=== PATIENT | male | born 1990 | race African-American/Black ===

== ENCOUNTER 2023-10-25 14:16 | Emergency (ER) | payer SELFPAY ==
[~2023-10-25] VITALS: Ht 180.3 cm; Wt 88.6 kg
[2023-10-25 14:25] VITALS: TEMP 98.3
[2023-10-25 14:47] VITALS: BP 133/87
[2023-10-25] MEDS ORDERED: IPRATROPIUM BROMIDE 0.5 MG/2.5 ML NEB SOLUTION NEB ONE (15:00)
[2023-10-25] MEDS ORDERED: PredniSONE 20 MG TABLET PO ONE (15:00)
[2023-10-25] MEDS ORDERED: ALBUTEROL SULFATE 2.5 MG/0.5 ML NEB SOLUTION NEB ONE (15:00)
[2023-10-25] MEDS ORDERED: ALBUTEROL SULFATE HFA 90 MCG/PUFF 8 GM INHALER IH ONE (15:00)
[2023-10-25 15:04] VITALS: PULSE 63; RESP 16; O2SAT 96
[2023-10-25 15:19] VITALS: PULSE 57; RESP 16; O2SAT 100
[2023-10-25 15:20] VITALS: PULSE 61; RESP 18; O2SAT 100
[2023-10-25] MEDS ORDERED: PRED-554 PO (15:38)
== END 2023-10-25 15:45 | disposition home or self-care (01) ==
LOC: EMS 14:27
DX: J45.909 Unspecified asthma, uncomplicated (principal)
CPT/HCPCS: 99283; 94640; J7512; J3535

== ENCOUNTER 2023-12-20 19:37 | Emergency (ER) | payer MEDICAID ==
[~2023-12-20] VITALS: Ht 180.3 cm; Wt 94.5 kg
[~2023-12-20 19:37] MED LIST: PRED-554 PO
[2023-12-20 20:09] VITALS: BP 141/87; PULSE 59; RESP 18; TEMP 97.6
[2023-12-20] MEDS ORDERED: ALBU18HF12 IH (21:16)
[2023-12-20] MEDS: ALBUTEROL SULFATE 2.5 MG/0.5 ML NEB SOLUTION NEB ONE (21:35)
== END 2023-12-20 22:16 | disposition home or self-care (01) ==
LOC: EMS 19:37
DX: J45.909 Unspecified asthma, uncomplicated (principal); Z76.0 Encounter for issue of repeat prescription
CPT/HCPCS: 94640; 99283

== ENCOUNTER 2024-01-26 08:29 | Emergency (ER) | payer MEDICAID ==
[~2024-01-26] VITALS: Ht 180.3 cm; Wt 95.0 kg
[~2024-01-26 08:29] MED LIST changes: +ALBU18HF12 IH
[2024-01-26 08:32] VITALS: TEMP 98.1
[2024-01-26] MEDS ORDERED: ALBU18HF12 IH (08:52)
[2024-01-26] MEDS: ALBUTEROL SULFATE HFA 90 MCG/PUFF 8 GM INHALER IH ONE (09:01)
[2024-01-26 09:07] VITALS: BP 135/82; PULSE 60; RESP 16
== END 2024-01-26 09:12 | disposition home or self-care (01) ==
LOC: EMS 08:29
DX: J45.909 Unspecified asthma, uncomplicated (principal); Z76.0 Encounter for issue of repeat prescription
CPT/HCPCS: 99283; 94640; J3535

== ENCOUNTER 2024-03-20 16:42 | Emergency (ER) | payer SELFPAY ==
[~2024-03-20] VITALS: Ht 180.3 cm; Wt 96.8 kg
[~2024-03-20 16:42] MED LIST changes: -PRED-554 PO
[2024-03-20 16:46] VITALS: BP 130/84; PULSE 58; RESP 16; TEMP 98
== END 2024-03-20 17:56 | disposition home or self-care (01) ==
LOC: EMS 16:43
DX: J45.21 Mild intermittent asthma with (acute) exacerbation (principal); Z76.0 Encounter for issue of repeat prescription
CPT/HCPCS: 99281; Z7502

== ENCOUNTER 2024-04-29 23:05 | Emergency (ER) | payer SELFPAY ==
[~2024-04-29] VITALS: Ht 182.9 cm; Wt 95.5 kg
[2024-04-29 23:11] VITALS: TEMP 97.7
[2024-04-29 23:54] VITALS: BP 127/71
[2024-04-30] MEDS ORDERED: ALBU18HF12 IH (00:07)
[2024-04-30] MEDS ORDERED: METH4TAB95 PO (00:07)
[2024-04-30] MEDS: DEXAMETHASONE SOD PHOS 4 MG/ML 5 ML VIAL IM ONE (00:16)
[2024-04-30] MEDS: ALBUTEROL SULFATE 2.5 MG/0.5 ML NEB SOLUTION NEB ONE (00:26)
[2024-04-30] MEDS: IPRATROPIUM BROMIDE 0.5 MG/2.5 ML NEB SOLUTION NEB ONE (00:26)
[2024-04-30 00:30] VITALS: PULSE 100; RESP 18; O2SAT 97
[2024-04-30 00:40] VITALS: PULSE 106; RESP 18; O2SAT 100
== END 2024-04-30 00:49 | disposition home or self-care (01) ==
LOC: EMS 23:05
DX: J45.901 Unspecified asthma with (acute) exacerbation (principal)
CPT/HCPCS: 99283; 94640; 96372; J1100

== ENCOUNTER 2024-06-09 22:57 | Emergency (ER) | payer SELFPAY ==
[~2024-06-09] VITALS: Ht 182.9 cm; Wt 92.7 kg
[~2024-06-09 22:57] MED LIST changes: +METH4TAB95 PO
[2024-06-09 23:19] VITALS: BP 138/87; TEMP 98.3
[2024-06-09] MEDS: PredniSONE 20 MG TABLET PO ONE (23:27)
[2024-06-09] MEDS: IPRATROPIUM BROMIDE 0.5 MG/2.5 ML NEB SOLUTION NEB ONE (23:27)
[2024-06-09] MEDS: ALBUTEROL SULFATE HFA 90 MCG/PUFF 8 GM INHALER IH ONE (23:28)
[2024-06-09] MEDS: ALBUTEROL SULFATE 2.5 MG/0.5 ML NEB SOLUTION NEB ONE (23:28)
[2024-06-09 23:30] VITALS: PULSE 71; RESP 17; O2SAT 98
[2024-06-09 23:45] VITALS: PULSE 73; RESP 19; O2SAT 100
[2024-06-09 23:50] VITALS: PULSE 69; RESP 18; O2SAT 99
[2024-06-10] MEDS ORDERED: PRED-554 PO (00:13)
== END 2024-06-10 02:44 | disposition home or self-care (01) ==
LOC: EMS 22:57
DX: J45.901 Unspecified asthma with (acute) exacerbation (principal)
CPT/HCPCS: 99283; 94640; 94060; J7512; J3535

== ENCOUNTER 2024-06-18 10:12 | Emergency (ER) | payer SELFPAY ==
[~2024-06-18] VITALS: Ht 180.3 cm; Wt 95.5 kg
[~2024-06-18 10:12] MED LIST changes: +PRED-554 PO
[2024-06-18 10:14] VITALS: BP 126/74; PULSE 60; RESP 18; TEMP 98; O2SAT 99
[2024-06-18] MEDS ORDERED: ALBU18HF12 IH (10:29)
== END 2024-06-18 10:33 | disposition home or self-care (01) ==
LOC: EMS 10:12
DX: J45.901 Unspecified asthma with (acute) exacerbation (principal); Z76.0 Encounter for issue of repeat prescription
CPT/HCPCS: 99281; Z7502

== ENCOUNTER 2024-08-05 02:51 | Emergency (ER) | payer SELFPAY ==
[~2024-08-05] VITALS: Ht 180.3 cm; Wt 97.3 kg
[~2024-08-05 02:51] MED LIST changes: -METH4TAB95 PO; -PRED-554 PO
[2024-08-05 02:52] VITALS: BP 143/102; TEMP 97.8
[2024-08-05] MEDS ORDERED: ALBU18HF12 IH (03:17)
[2024-08-05 03:23] VITALS: PULSE 65; RESP 20; O2SAT 98
[2024-08-05] MEDS: IPRATROPIUM BROMIDE 0.5 MG/2.5 ML NEB SOLUTION NEB ONE (03:23)
[2024-08-05] MEDS: ALBUTEROL SULFATE 2.5 MG/0.5 ML NEB SOLUTION NEB ONE (03:23)
[2024-08-05] MEDS: DEXAMETHASONE SOD PHOS 4 MG/ML 5 ML VIAL IM ONE (03:28)
[2024-08-05] MEDS: ALBUTEROL SULFATE HFA 90 MCG/PUFF 8 GM INHALER IH ONE (03:34)
[2024-08-05 03:38] VITALS: PULSE 64; RESP 20; O2SAT 99
== END 2024-08-05 03:45 | disposition home or self-care (01) ==
LOC: EMS 02:51
DX: J45.901 Unspecified asthma with (acute) exacerbation (principal)
CPT/HCPCS: 99283; 94640; 96372; J1100; J3535

== ENCOUNTER 2024-11-03 22:46 | Emergency (ER) | payer SELFPAY ==
[~2024-11-03] VITALS: Ht 182.9 cm; Wt 95.0 kg
[2024-11-03 23:07] VITALS: BP 129/79; PULSE 63; RESP 18; TEMP 97.7; O2SAT 100
[2024-11-03] MEDS: IPRATROPIUM BROMIDE 0.5 MG/2.5 ML NEB SOLUTION NEB ONE (23:43)
[2024-11-03] MEDS: ALBUTEROL SULFATE 2.5 MG/0.5 ML NEB SOLUTION NEB ONE (23:43)
[2024-11-03] MEDS ORDERED: PredniSONE 20 MG TABLET PO ONE (23:45)
[2024-11-03] MEDS: ALBUTEROL SULFATE HFA 90 MCG/PUFF 8 GM INHALER IH ONE (23:46)
[2024-11-04] MEDS ORDERED: PRED-554 PO (00:03)
== END 2024-11-04 00:05 | disposition left against medical advice (07) ==
LOC: EMS 22:46
DX: J45.901 Unspecified asthma with (acute) exacerbation (principal)
CPT/HCPCS: 99283; 94640; J3535; 94060

== ENCOUNTER 2024-11-21 12:41 | Emergency (ER) | payer OTHER ==
[~2024-11-21] VITALS: Ht 180.3 cm; Wt 94.1 kg
[~2024-11-21 12:41] MED LIST changes: +PRED-554 PO
[2024-11-21 12:44] VITALS: TEMP 98.5
[2024-11-21] MEDS ORDERED: BECL10.62 IH ×2 (12:50→14:47)
[2024-11-21] MEDS: ALBUTEROL SULFATE 2.5 MG/0.5 ML 5 ML NEB SOLUTION NEB ONE (14:03)
[2024-11-21] MEDS: IPRATROPIUM BROMIDE 0.5 MG/2.5 ML NEB SOLUTION NEB ONE (14:03)
[2024-11-21 14:08] VITALS: PULSE 75; RESP 20; O2SAT 91
[2024-11-21] MEDS: ALBUTEROL SULFATE HFA 90 MCG/PUFF 8 GM INHALER IH ONE (14:27)
[2024-11-21] MEDS: PredniSONE 20 MG TABLET PO ONE (14:27)
[2024-11-21] MEDS ORDERED: ALBU18HF12 IH (14:47)
[2024-11-21 15:16] VITALS: BP 142/94; PULSE 90; RESP 18; O2SAT 100
== END 2024-11-21 15:18 | disposition home or self-care (01) ==
LOC: EMS 12:41
DX: J45.901 Unspecified asthma with (acute) exacerbation (principal); Z79.51 Long term (current) use of inhaled steroids
CPT/HCPCS: 99285; 71045; 94644; J7512; J3535

== ENCOUNTER 2025-01-14 21:57 | Emergency (ER) | payer SELFPAY ==
[~2025-01-14] VITALS: Ht 180.3 cm; Wt 94.1 kg
[~2025-01-14 21:57] MED LIST changes: +BECL10.62 IH; -PRED-554 PO
[2025-01-15 00:39] VITALS: TEMP 98.4
[2025-01-15 00:49] VITALS: PULSE 66; RESP 18; RESP 20; O2SAT 93
[2025-01-15] MEDS: IPRATROPIUM BROMIDE 0.5 MG/2.5 ML NEB SOLUTION NEB ONE (00:49)
[2025-01-15] MEDS: ALBUTEROL SULFATE 2.5 MG/0.5 ML NEB SOLUTION NEB ONE (00:49)
[2025-01-15] MEDS: PredniSONE 20 MG TABLET PO ONE (00:55)
[2025-01-15 01:04] VITALS: PULSE 73; RESP 18; O2SAT 100
[2025-01-15] MEDS ORDERED: ALBU2.5V39 NEB (02:08)
[2025-01-15] MEDS ORDERED: PRED-554 PO (02:09)
[2025-01-15 02:10] VITALS: BP 146/68; PULSE 58; RESP 16; O2SAT 97
[2025-01-15] MEDS: ALBUTEROL SULFATE HFA 90 MCG/PUFF 8 GM INHALER IH ONE (02:15)
== END 2025-01-15 02:16 | disposition home or self-care (01) ==
LOC: EMS 21:57
DX: J45.901 Unspecified asthma with (acute) exacerbation (principal)
CPT/HCPCS: 99285; 94640; J7512; J3535

== ENCOUNTER 2025-06-10 18:02 | Emergency (ER) | payer SELFPAY ==
[~2025-06-10] VITALS: Ht 175.3 cm; Wt 90.0 kg
[~2025-06-10 18:02] MED LIST changes: -ALBU18HF12 IH; +ALBU2.5V39 NEB; -BECL10.62 IH; +PRED-554 PO
[2025-06-10 18:09] VITALS: BP 122/82; TEMP 98.2
[2025-06-10] MEDS: ALBUTEROL SULFATE HFA 90 MCG/PUFF 8 GM INHALER IH ONE (19:46)
[2025-06-10] MEDS ORDERED: PRED-554 PO (19:57)
[2025-06-10] MEDS ORDERED: 0.9% SODIUM CHLORIDE 15 ML NEB SOLUTION NEB ONE (20:05)
[2025-06-10] MEDS: IPRATROPIUM BROMIDE 0.5 MG/2.5 ML NEB SOLUTION NEB ONE (20:08)
[2025-06-10] MEDS: ALBUTEROL SULFATE 2.5 MG/0.5 ML 5 ML NEB SOLUTION NEB ONE (20:09)
[2025-06-10 20:12] VITALS: PULSE 62; RESP 18; O2SAT 95
== END 2025-06-10 21:00 | disposition home or self-care (01) ==
LOC: EMS 18:02
DX: J45.901 Unspecified asthma with (acute) exacerbation (principal); Z79.52 Long term (current) use of systemic steroids; Z76.0 Encounter for issue of repeat prescription
CPT/HCPCS: 99284; 94640; J7512; J3535

== ENCOUNTER 2025-07-18 19:38 | Emergency (ER) | payer SELFPAY ==
[~2025-07-18] VITALS: Ht 180.3 cm; Wt 93.1 kg
[2025-07-18] MEDS: IPRATROPIUM BROMIDE 0.5 MG/2.5 ML NEB SOLUTION NEB ONE (23:36)
[2025-07-18] MEDS: ALBUTEROL SULFATE 2.5 MG/0.5 ML 5 ML NEB SOLUTION NEB ONE (23:36)
[2025-07-19 00:37] VITALS: BP 124/71; PULSE 65; RESP 18; TEMP 98.3; O2SAT 99
== END 2025-07-19 01:39 | disposition home or self-care (01) ==
LOC: EMS 19:44
DX: J45.909 Unspecified asthma, uncomplicated (principal); R06.02 Shortness of breath; Z79.52 Long term (current) use of systemic steroids
CPT/HCPCS: 99283; 94640; J7512; 93005; 94644